=== PATIENT | female | born 1990 | race Caucasian/White ===

== ENCOUNTER 2017-04-26 17:53 | Emergency (ER) | payer BC ==
[~2017-04-26] VITALS: Ht 165.1 cm; Wt 56.7 kg
[2017-04-26 18:35] LABS: CHLORIDE 104 mEq/L (99-109); SODIUM 138 mEq/L (136-147)
[2017-04-26 18:37] LABS: GLUCOSE 91 mg/dL (70-99)
[2017-04-26 18:38] LABS: ANION GAP 14 MEQ/L (2-14)
[2017-04-26 18:39] LABS: TOTAL BILIRUBIN 0.6 mg/dL (0.0-1.0)
[2017-04-26 18:40] LABS: ALKALINE PHOSPHATASE 88 IU/L (3-129)
[2017-04-26 18:41] LABS: GFR ESTIMATE (CALCULATED) > 59 mL/min/
[2017-04-26 18:42] LABS: UREA NITROGEN (BUN) 10 mg/dL (9-23)
[2017-04-26 18:53] LABS: QUANTITATIVE HCG < 4.0 MIU/ML
[2017-04-26 19:21] LABS: HEMATOCRIT 37.5 % (36.0-46.0); HEMATOCRIT 37.9 % (36.0-46.0); MCH 29.9 PG (29.0-34.0); MCH 30.2 PG (29.0-34.0); MCHC 34.8 G/DL (30.0-36.0); MCHC 35.2 G/DL (30.0-36.0); MCV 85.7 FL (83-99); MCV 85.8 FL (83-99); MEAN PLAT.VOLUME 10.6 uM^3 (9.5-12.4); PLATELET COUNT 372 K/uL (156-360); RBC DIS.WIDTH-CV 11.9 % (11.8-14.6); RBC DIS.WIDTH-SD 37.4 % (39-53); RED BLOOD COUNT 4.37 M/uL (3.80-5.20); RED BLOOD COUNT 4.42 M/uL (3.80-5.20); WHITE BLOOD COUNT 8.3 K/uL (4.1-10.2); WHITE BLOOD COUNT 8.6 K/uL (4.1-10.2)
[2017-04-26 19:30] LABS: ADD MIUA? YES; BILIRUBIN NEGATIVE; BLOOD MODERATE; COLOR YELLOW ((YELLOW)); GLUCOSE (STRIP) NEGATIVE; KETONES 80; LEUKOCYTES NEGATIVE; NITRITE NEGATIVE; PROTEIN (STRIP) 30; SPECIFIC GRAVITY 1.024 (1.000-1.030); UROBILINOGEN 0.2 MG/DL (0.2-1.0)
[2017-04-26 20:04] LABS: EPITHELIAL CELLS 1+ /HPF; RED BLOOD CELLS NONE SEEN /HPF (0-5); WHITE BLOOD CELLS NONE SEEN /HPF (0-5)
[2017-04-26 20:05] LABS: BACTERIA 1+ /HPF; MUCUS 2+ /LPF; UCUL ADDED? NO
[2017-04-26 20:06] LABS: CASTS NONE SEEN /LPF; CRYSTALS NONE SEEN
[2017-04-26] MEDS ORDERED: MOTRIN600 MG PO (21:00)
[2017-04-26] MEDS ORDERED: TRAMADOL HCL50 MG PO (21:00)
[2017-04-26 21:26] VITALS: BP 136/82
== END 2017-04-26 21:27 | disposition home or self-care (01) ==
LOC: EME 17:53
PROVIDERS: Physician Assistant
DX: R10.11 Right upper quadrant pain (principal)
CPT/HCPCS: 74177; 80053; 81003; 83690; 84702; 85027; 99281; 99284; J7030